=== PATIENT | male | born 1990 | race Caucasian/White ===

== ENCOUNTER 2019-01-31 20:01 | Emergency (ER) | payer BC ==
[~2019-01-31] VITALS: Ht 180.3 cm; Wt 87.5 kg
[~2019-01-31 20:01] MED LIST: HYDACE5325 PO; NAPR500 PO
== END 2019-01-31 21:40 | disposition home or self-care (01) ==
LOC: ER 20:01
DX: S02.5XXA Fracture of tooth (traumatic), initial encounter for closed fracture (principal); S01.511A Laceration without foreign body of lip, initial encounter; W01.198A Fall on same level from slipping, tripping and stumbling with subsequent striking against other object, initial encounter
CPT/HCPCS: 12011; 99282-25